=== PATIENT | female | born 2000 | race Two or more races ===

== ENCOUNTER 2021-06-19 22:08 | Emergency (ER) | payer OTHER ==
[~2021-06-19] VITALS: Ht 157.5 cm; Wt 103.4 kg
== END 2021-06-20 02:37 ==
LOC: ER 22:08
DX: O20.0 Threatened abortion (principal); Z3A.00 Weeks of gestation of pregnancy not specified

== ENCOUNTER 2021-09-18 23:52 | Emergency (ER) | payer OTHER ==
[~2021-09-18] VITALS: Ht 160 cm; Wt 97.5 kg
[2021-09-19] MEDS ORDERED: ACETAMINOPHEN650 M2 PO (04:39)
== END 2021-09-19 04:51 | disposition home or self-care (01) ==
LOC: ER 23:52
DX: O20.9 Hemorrhage in early pregnancy, unspecified (principal); Z3A.11 11 weeks gestation of pregnancy